=== PATIENT | male | born 1970 | race Two or more races ===

== ENCOUNTER 2023-12-26 21:23 | Inpatient (IN) | payer MEDICAID ==
[~2023-12-26] VITALS: Ht 180.3 cm; Wt 99.8 kg
[2023-12-26] MEDS ORDERED: BUDESONIDE 0.5 MG/2 ML NEBU ONE (21:53)
[2023-12-26] MEDS ORDERED: ALBUTEROL SULFATE 2.5 MG/3 ML NEBU ONE (21:54)
[2023-12-26] MEDS ORDERED: IPRATROPIUM BROMIDE 0.5 MG/2.5 ML NEBU ONE (21:54)
[2023-12-26 21:59] LABS: BASOPHILS # (AUTO) 0.1 K/UL (0.0-0.2); BASOPHILS % (AUTO) 0.8 % (0.0-2.0); EOSINOPHILS # (AUTO) 0.2 K/uL (0.0-0.7); EOSINOPHILS % (AUTO) 2.1 % (0.0-7.0); HEMATOCRIT 46.7 % (36.7-47.1); HEMOGLOBIN 14.9 g/dL (12.5-16.3); LYMPHOCYTES # (AUTO) 1.5 K/uL (0.8-4.8); LYMPHOCYTES % (AUTO) 19.6 % (20.5-51.5); MEAN CORPUSCULAR HEMOGLOBIN 24.8 uug (23.8-33.4); MEAN CORPUSCULAR HGB CONC 32 g/dL (32.5-36.3); MEAN CORPUSCULAR VOLUME 77.7 fL (73.0-96.2); MONOCYTES # (AUTO) 0.5 K/uL (0.1-1.30); MONOCYTES % (AUTO) 6.8 % (0.0-11.0); NEUTROPHILS # (AUTO) 5.5 K/uL (1.8-8.9); NEUTROPHILS % (AUTO) 70.7 % (38.5-71.5); PLATELET COUNT (AUTO) 168 K/uL (152-348); RED BLOOD CELL COUNT(AUTO) 6.01 MIL/uL (4.06-5.63); RED CELL DISTRIBUTION WIDTH 15.3 % (12.1-16.2); WHITE BLOOD COUNT (AUTO) 7.8 K/uL (3.6-10.2)
[2023-12-26 22:01] LABS: CALCIUM 8.9 mg/dL (8.5-10.1); CREATININE 1.3 mg/dL (0.6-1.3); DIFFERENTIAL COMMENT 1; POTASSIUM 3.9 mmol/L (3.5-5.1)
[2023-12-26 22:06] LABS: ALBUMIN 3.6 g/dL (3.4-5.0); BILIRUBIN,TOTAL 0.5 mg/dL (0.2-1.0); TOTAL PROTEIN, SERUM 6.8 g/dL (6.4-8.2)
[2023-12-26 22:11] VITALS: O2SAT 99
[2023-12-26 22:15] VITALS: O2SAT 99
[2023-12-26] MEDS: BUDESONIDE 0.5 MG/2 ML NEBU NEB ONE (22:24)
[2023-12-26] MEDS: ALBUTEROL SULFATE 2.5 MG/3 ML NEBU NEB ONE (22:24)
[2023-12-26] MEDS: IPRATROPIUM BROMIDE 0.5 MG/2.5 ML NEBU NEB ONE (22:24)
[2023-12-26] MEDS: METOPROLOL TARTRATE 50 MG TABLET PO ONE (23:18)
[2023-12-26] MEDS ORDERED: METOPROLOL PO (23:20)
[2023-12-26] MEDS ORDERED: ASPIRIN 81 MG TAB.CHEW ONE (23:46)
[2023-12-26] MEDS: ASPIRIN 81 MG TAB.CHEW PO ONE (23:48)
[2023-12-26] MEDS ORDERED: BENZOCAINE/MENTH/CETYLPYRD LOZENGE MM ONE (23:48)
[2023-12-26] MEDS: BENZOCAINE/MENTH/CETYLPYRD LOZENGE MM ONE (23:49)
[2023-12-27] MEDS: LOSARTAN POTASSIUM 50 MG TABLET PO SCH ×2 (00:33→09:13)
[2023-12-27] MEDS ORDERED: ATORVASTATIN 20 MG TABLET ONE (01:39)
[2023-12-27] MEDS: ATORVASTATIN 40 MG TABLET PO SCH (01:41)
[2023-12-27] MEDS ORDERED: ONDANSETRON 4 MG/2 ML VIAL IV PRN (01:45)
[2023-12-27] MEDS ORDERED: hydrALAZINE HCL 20 MG/1 ML VIAL IV PRN (01:45)
[2023-12-27] MEDS ORDERED: REMEDY ESSENTIAL ZINC PASTE 113 GM TP PRN (01:45)
[2023-12-27] MEDS ORDERED: MAGNESIUM HYDROXIDE 30 ML LIQUID UDC PO PRN (01:45)
[2023-12-27] MEDS ORDERED: ACETAMINOPHEN 325 MG TABLET PO PRN (01:45)
[2023-12-27 06:50] VITALS: BP 166/102; TEMP 98.6; O2SAT 97
[2023-12-27 07:27] LABS: BASOPHILS % (AUTO) 0.4 % (0.0-2.0); EOSINOPHILS # (AUTO) 0.2 K/uL (0.0-0.7); EOSINOPHILS % (AUTO) 2.5 % (0.0-7.0); HEMATOCRIT 44.3 % (36.7-47.1); HEMOGLOBIN 14.2 g/dL (12.5-16.3); LYMPHOCYTES # (AUTO) 1.6 K/uL (0.8-4.8); LYMPHOCYTES % (AUTO) 19.6 % (20.5-51.5); MEAN CORPUSCULAR HEMOGLOBIN 24.8 uug (23.8-33.4); MEAN CORPUSCULAR HGB CONC 32 g/dL (32.5-36.3); MEAN CORPUSCULAR VOLUME 77.3 fL (73.0-96.2); MONOCYTES # (AUTO) 0.8 K/uL (0.1-1.30); MONOCYTES % (AUTO) 9.1 % (0.0-11.0); NEUTROPHILS # (AUTO) 5.7 K/uL (1.8-8.9); NEUTROPHILS % (AUTO) 68.4 % (38.5-71.5); PLATELET COUNT (AUTO) 158 K/uL (152-348); RED BLOOD CELL COUNT(AUTO) 5.74 MIL/uL (4.06-5.63); RED CELL DISTRIBUTION WIDTH 15.6 % (12.1-16.2); WHITE BLOOD COUNT (AUTO) 8.3 K/uL (3.6-10.2)
[2023-12-27 07:35] LABS: DIFFERENTIAL COMMENT 1
[2023-12-27 07:58] VITALS: BP 150/101; TEMP 98; O2SAT 97
[2023-12-27 08:09] LABS: CALCIUM 9.2 mg/dL (8.5-10.1); CREATININE 1.1 mg/dL (0.6-1.3); POTASSIUM 4.6 mmol/L (3.5-5.1)
[2023-12-27 11:56] VITALS: BP 161/102; TEMP 97.9; O2SAT 97
[2023-12-27 15:58] VITALS: BP 157/97; TEMP 98; O2SAT 100
[2023-12-27] MEDS ORDERED: ASPI-1101 PO (17:05)
[2023-12-27] MEDS ORDERED: LOSA50TA3 PO (17:05)
[2023-12-27] MEDS ORDERED: ROSU20TA2 PO (17:05)
[2023-12-27] MEDS ORDERED: AMLO-212 PO (17:05)
[2023-12-27] MEDS ORDERED: AMLODIPINE 5 MG TABLET PO SCH (21:00)
== END 2023-12-27 18:10 | disposition home or self-care (01) | DRG 816 ==
LOC: ER 21:26 → TELE3 12-27 05:48
PROVIDERS: ATTEND Internal Medicine
DX: T59.811A Toxic effect of smoke, accidental (unintentional), initial encounter (principal); N17.0 Acute kidney failure with tubular necrosis; I21.A1 Myocardial infarction type 2; I16.9 Hypertensive crisis, unspecified; J02.9 Acute pharyngitis, unspecified; E66.9 Obesity, unspecified; I10 Essential (primary) hypertension; Y92.019 Unspecified place in single-family (private) house as the place of occurrence of the external cause; Z68.30 Body mass index [BMI] 30.0-30.9, adult; X00.0XXA Exposure to flames in uncontrolled fire in building or structure, initial encounter; Z82.49 Family history of ischemic heart disease and other diseases of the circulatory system; R42 Dizziness and giddiness; E78.5 Hyperlipidemia, unspecified; Z79.82 Long term (current) use of aspirin
CPT/HCPCS: 36415; 71045; 84484; 85025; 93307; G0378; J3590